=== PATIENT | female | born 1980 | race American Indian/Alaskan Native ===

== ENCOUNTER 2017-07-11 23:59 | Emergency (ER) | payer MEDICARE ==
[2017-07-12 02:20] LABS: Hematocrit 40.2 % (30.3-42.9); Hemoglobin 13.7 gm/dl (10.1-14.3); Mean Corpuscular HGB Conc 34 % (30-34); Mean Corpuscular Volume 75 fl (79-97); Platelet Count 288 K/mm3 (140-440); Red Blood Count 5.33 M/mm3 (3.65-5.03); Red Cell Distribution Width 17.6 % (13.2-15.2)
[2017-07-12 02:36] LABS: BUN/Creatinine Ratio 12; Blood Urea Nitrogen 7 mg/dL (7-17); Calcium 8.7 mg/dL (8.4-10.2); Hemolysis Index 2
[2017-07-12 02:41] LABS: Mean Corpuscular Hemoglobin 26 pg (28-32)
[2017-07-12 04:40] LABS: Band Neutrophils # (Manual) 0.6 K/mm3; Basophils % (Manual) 0 % (0.0-1.8); Eosinophils % (Manual) 0 % (0.0-4.3); Hypochromasia 1+; Total Cells Counted 100
[2017-07-12] MEDS ORDERED: MOTRIN PO ONE (08:20)
[2017-07-12] MEDS ORDERED: VEETIDS PO NR (08:20)
[2017-07-12] MEDS ORDERED: PERCOCET 5/325 PO PRN (08:20)
--- NOTE | 2017-07-12 08:25 | Emergency Department Report ---
ED General Adult HPI - General Chief complaint: Dental/Oral Stated complaint: TOOTHACHE,DIZZY Time Seen by Provider: 07/12/17 08:04 Source: patient Mode of arrival: Ambulatory Limitations: No Limitations - History of Present Illness Initial comments: This is a 37-year-old female who is unknown to this provider previously, has a past medical history of obesity who presents to the ER with complaint of left- sided nontraumatic facial pain, and dental pain over teeth #14, 15, 16. She endorses sensitivity to cold, hot. She has no stridor, or trismus, but she does have pain with chewing food. She denies tinnitus, she denies vertigo, she denies change in auditory acuity. She does complain of resolves dizziness, Patient describes the dizziness as a sensation of room spinning, only when she closed her eyes. She indicates that it lasted for a few seconds, and that she is not experiencing it now, and she has not been experiencing it for many hours. The patient denies other complaints. -: Gradual Location: face, mouth Radiation: non-radiation Quality: aching Consistency: constant Improves with: rest Worsens with: movement Associated Symptoms: headaches (left-sided frontal sinus headache). denies: confusion, chest pain, cough, diaphoresis, fever/chills, loss of appetite, malaise, nausea/vomiting, rash, seizure, shortness of breath, syncope, weakness - Related Data Home Medications Medication Instructions Recorded Confirmed Last Taken Teena-D 24 Hour Tablet 180 mg PO DAILY 01/28/15 08/09/15 02/20/15 Fergon 240 MG tab 1 tab PO DAILY 01/28/15 02/21/15 02/20/15 Fluticasone (Nf) 1 spray INNOSTRIL DAILY 01/28/15 08/09/15 02/20/15 Gabapentin 1 tab PO DAILY 01/28/15 08/09/15 02/20/15 Losartan/Hydrochlorothiazide 1 tab PO DAILY 01/28/15 08/09/15 02/20/15 [Losartan-Hctz 50-12.5 mg Tab] Vitamin C 500 mg PO DAILY 01/28/15 08/09/15 02/20/15 Previous Rx's Medication Instructions Recorded Last Taken Type Chlorhexidine Gluconate [Paroex] 473 ml MM BID #1 mouthwash 07/12/17 Unknown Rx Ibuprofen [Motrin] 600 mg PO Q8H PRN #30 tablet 07/12/17 Unknown Rx Ondansetron [Zofran Odt] 4 mg PO Q8HR PRN #20 tab.rapdis 07/12/17 Unknown Rx Penicillin V Potassium 500 mg PO QID #28 tablet 07/12/17 Unknown Rx oxyCODONE [Roxicodone] 5 mg PO Q6HR PRN #15 tablet 07/12/17 Unknown Rx Allergies Allergy/AdvReac Type Severity Reaction Status Date / Time No Known Allergies Allergy Verified 08/09/15 11:09 ED Review of Systems ROS: Stated complaint: TOOTHACHE,DIZZY Other details as noted in HPI Comment: All other systems reviewed and negative ENT: dental pain ED Past Medical Hx - Past Medical History Previous Medical History?: Yes Hx Hypertension: Yes Hx Congestive Heart Failure: No Hx Diabetes: Yes (takes Metformin) Hx GERD: Yes Hx Sickle Cell Disease: (SICKLE CELL TRAIT) Hx Arthritis: Yes Hx Asthma: No Hx COPD: No Hx HIV: No Additional medical history: PSH CSEC. PMH HTN. OBESE. OA. ANEMIA. RX. BP MEDS. VIT. FE - Surgical History Past Surgical History?: Yes Additional Surgical History: csection x 3 - Social History Smoking Status: Never Smoker - Medications Home Medications: Home Medications Medication Instructions Recorded Confirmed Last Taken Type Teena-D 24 Hour Tablet 180 mg PO DAILY 01/28/15 08/09/15 02/20/15 History Fergon 240 MG tab 1 tab PO DAILY 01/28/15 02/21/15 02/20/15 History Fluticasone (Nf) 1 spray INNOSTRIL DAILY 01/28/15 08/09/15 02/20/15 History Gabapentin 1 tab PO DAILY 01/28/15 08/09/15 02/20/15 History Losartan/Hydrochlorothiazide 1 tab PO DAILY 01/28/15 08/09/15 02/20/15 History [Losartan-Hctz 50-12.5 mg Tab] Vitamin C 500 mg PO DAILY 01/28/15 08/09/15 02/20/15 History Chlorhexidine Gluconate [Paroex] 473 ml MM BID #1 mouthwash 07/12/17 Unknown Rx Ibuprofen [Motrin] 600 mg PO Q8H PRN #30 tablet 07/12/17 Unknown Rx Ondansetron [Zofran Odt] 4 mg PO Q8HR PRN #20 tab.rapdis 07/12/17 Unknown Rx Penicillin V Potassium 500 mg PO QID #28 tablet 07/12/17 Unknown Rx oxyCODONE [Roxicodone] 5 mg PO Q6HR PRN #15 tablet 07/12/17 Unknown Rx ED Physical Exam - General Limitations: No Limitations General appearance: alert, in no apparent distress - Head Head exam: Present: atraumatic, normocephalic, other (left-sided maxillary sinus tenderness) - Eye Eye exam: Present: normal appearance, PERRL, EOMI, other (visual acuity intact to finger counting, color perception, reading at a close distance). Absent: nystagmus - ENT ENT exam: Present: mucous membranes moist, TM's normal bilaterally, normal external ear exam, other (there is no mastoid tenderness. There are no vesicles. There is no stridor or trismus. Dental caries and poor dentition noted universally, especially poor dentition over teeth #14, 15, 16. There is gingival tenderness. Small gingival/periapical abscesses noted.). Absent: normal orophraynx - Neck Neck exam: Present: normal inspection, full ROM. Absent: tenderness, meningismus - Respiratory Respiratory exam: Present: normal lung sounds bilaterally. Absent: respiratory distress - Cardiovascular Cardiovascular Exam: Present: regular rate, normal rhythm, normal heart sounds. Absent: bradycardia, tachycardia, irregular rhythm, systolic murmur, diastolic murmur, rubs, gallop - GI/Abdominal GI/Abdominal exam: Present: soft, normal bowel sounds. Absent: distended, tenderness, guarding, rebound, rigid, pulsatile mass, hernia - Extremities Exam Extremities exam: Present: normal inspection, full ROM, normal capillary refill , other (there is no palpable cord. There is a negative Homans sign.). Absent : pedal edema, joint swelling, calf tenderness - Back Exam Back exam: Present: normal inspection, full ROM. Absent: tenderness, CVA tenderness (R), paraspinal tenderness, vertebral tenderness - Neurological Exam Neurological exam: Present: alert, oriented X3, CN II-XII intact, normal gait ( there is no past pointing. There is normal thdq-ic-dxmh. There is negative pronator drift. There is normal gait.), other (Extraocular movements intact. Tongue midline. No facial droop. Facial sensation intact to light touch in the V1, V2, V3 distribution bilaterally. 5 and 5 strength in 4 extremities.. Sensation is intact to light touch in 4 extremities.). Absent: motor sensory deficit - Psychiatric Psychiatric exam: Present: normal affect, normal mood - Skin Skin exam: Present: warm, dry, intact, normal color. Absent: rash ED Course Vital Signs 07/12/17 07/12/17 07/12/17 00:39 00:57 05:39 Temperature 98.6 F 98.6 F 98.3 F Pulse Rate 102 H 98 H 83 Respiratory 20 20 20 Rate Blood Pressure 172/113 172/113 Blood Pressure 147/81 [Right] O2 Sat by Pulse 97 96 98 Oximetry 07/12/17 07/12/17 07/12/17 06:00 08:47 09:46 Temperature Pulse Rate Respiratory 20 18 18 Rate Blood Pressure 130/91 Blood Pressure [Right] O2 Sat by Pulse 98 Oximetry 07/12/17 09:50 Temperature 98.9 F Pulse Rate 101 H Respiratory 18 Rate Blood Pressure Blood Pressure 135/85 [Right] O2 Sat by Pulse 97 Oximetry ED Medical Decision Making - Lab Data Result diagrams: 07/12/17 01:16 07/12/17 01:16 Vital Signs 07/12/17 07/12/17 07/12/17 00:39 00:57 05:39 Temperature 98.6 F 98.6 F 98.3 F Pulse Rate 102 H 98 H 83 Respiratory 20 20 20 Rate Blood Pressure 172/113 172/113 Blood Pressure 147/81 [Right] O2 Sat by Pulse 97 96 98 Oximetry 07/12/17 06:00 Temperature Pulse Rate Respiratory 20 Rate Blood Pressure 130/91 Blood Pressure [Right] O2 Sat by Pulse 98 Oximetry Lab Results 07/12/17 07/12/17 07/12/17 Range/Units 01:16 01:16 01:16 WBC 15.2 H (4.5-11.0) K/mm3 RBC 5.33 H (3.65-5.03) M/mm3 Hgb 13.7 (10.1-14.3) gm/dl Hct 40.2 (30.3-42.9) % MCV 75 L (79-97) fl MCH 26 L (28-32) pg MCHC 34 (30-34) % RDW 17.6 H (13.2-15.2) % Plt Count 288 (140-440) K/mm3 Lymph # Inventory Coordinator Add Manual Diff Complete Total Counted 100 Seg Neuts % (Manual) 63.0 (40.0-70.0) % Band Neutrophils % 4.0 % Lymphocytes % (Manual) 30.0 (13.4-35.0) % Reactive Lymphs % (Man) 0 % Monocytes % (Manual) 3.0 (0.0-7.3) % Eosinophils % (Manual) 0 (0.0-4.3) % Basophils % (Manual) 0 (0.0-1.8) % Metamyelocytes % 0 % Myelocytes % 0 % Promyelocytes % 0 % Blast Cells % 0 % Nucleated RBC % Not Reportable Seg Neutrophils # Man 9.6 H (1.8-7.7) K/mm3 Band Neutrophils # 0.6 K/mm3 Lymphocytes # (Manual) 4.6 (1.2-5.4) K/mm3 Abs React Lymphs (Man) 0.0 K/mm3 Monocytes # (Manual) 0.5 (0.0-0.8) K/mm3 Eosinophils # (Manual) 0.0 (0.0-0.4) K/mm3 Basophils # (Manual) 0.0 (0.0-0.1) K/mm3 Metamyelocytes # 0.0 K/mm3 Myelocytes # 0.0 K/mm3 Promyelocytes # 0.0 K/mm3 Blast Cells # 0.0 K/mm3 WBC Morphology Not Reportable Hypersegmented Neuts Not Reportable Hyposegmented Neuts Not Reportable Hypogranular Neuts Not Reportable Smudge Cells Not Reportable Toxic Granulation Not Reportable Toxic Vacuolation Not Reportable Dohle Bodies Not Reportable Pelger-Huet Anomaly Not Reportable Felicita Rods Not Reportable Platelet Estimate Appears normal Clumped Platelets Not Reportable Plt Clumps, EDTA Not Reportable Large Platelets Not Reportable Giant Platelets Not Reportable Platelet Satelliting Not Reportable Plt Morphology Comment Not Reportable RBC Morphology Not Reportable Dimorphic RBCs Not Reportable Polychromasia Not Reportable Hypochromasia 1+ Poikilocytosis Not Reportable Anisocytosis Not Reportable Microcytosis Not Reportable Macrocytosis Not Reportable Spherocytes Not Reportable Pappenheimer Bodies Not Reportable Sickle Cells Not Reportable Target Cells Not Reportable Tear Drop Cells Not Reportable Ovalocytes Not Reportable Helmet Cells Not Reportable [place] Bodies Not Reportable Boulevard Rings Not Reportable [place] Cells Not Reportable Bite Cells Not Reportable Crenated Cell Not Reportable Elliptocytes Not Reportable Acanthocytes (Spur) Not Reportable Rouleaux Not Reportable Hemoglobin C Crystals Not Reportable Schistocytes Not Reportable Malaria parasites Not Reportable Beka Bodies Not Reportable Hem Pathologist Commnt No Sodium 140 (137-145) mmol/L Potassium 3.5 L (3.6-5.0) mmol/L Chloride 100.9 (98-107) mmol/L Carbon Dioxide 27 (22-30) mmol/L Anion Gap 16 mmol/L BUN 7 (7-17) mg/dL Creatinine 0.6 L (0.7-1.2) mg/dL Estimated GFR > 60 ml/min BUN/Creatinine Ratio 12 % Glucose 125 H (65-100) mg/dL Calcium 8.7 (8.4-10.2) mg/dL Troponin T < 0.010 (0.00-0.029) ng/mL HCG, Qual Negative (Negative) 07/12/17 07/12/17 Range/Units 04:37 07:04 WBC (4.5-11.0) K/mm3 RBC (3.65-5.03) M/mm3 Hgb (10.1-14.3) gm/dl Hct (30.3-42.9) % MCV (79-97) fl MCH (28-32) pg MCHC (30-34) % RDW (13.2-15.2) % Plt Count (140-440) K/mm3 Lymph # Add Manual Diff Total Counted Seg Neuts % (Manual) (40.0-70.0) % Band Neutrophils % % Lymphocytes % (Manual) (13.4-35.0) % Reactive Lymphs % (Man) % Monocytes % (Manual) (0.0-7.3) % Eosinophils % (Manual) (0.0-4.3) % Basophils % (Manual) (0.0-1.8) % Metamyelocytes % % Myelocytes % % Promyelocytes % % Blast Cells % % Nucleated RBC % Seg Neutrophils # Man (1.8-7.7) K/mm3 Band Neutrophils # K/mm3 Lymphocytes # (Manual) (1.2-5.4) K/mm3 Abs React Lymphs (Man) K/mm3 Monocytes # (Manual) (0.0-0.8) K/mm3 Eosinophils # (Manual) (0.0-0.4) K/mm3 Basophils # (Manual) (0.0-0.1) K/mm3 Metamyelocytes # K/mm3 Myelocytes # K/mm3 Promyelocytes # K/mm3 Blast Cells # K/mm3 WBC Morphology Hypersegmented Neuts Hyposegmented Neuts Hypogranular Neuts Smudge Cells Toxic Granulation Toxic Vacuolation Dohle Bodies Pelger-Huet Anomaly Felicita Rods Platelet Estimate Clumped Platelets Plt Clumps, EDTA Large Platelets Giant Platelets Platelet Satelliting Plt Morphology Comment RBC Morphology Dimorphic RBCs Polychromasia Hypochromasia Poikilocytosis Anisocytosis Microcytosis Macrocytosis Spherocytes Pappenheimer Bodies Sickle Cells Target Cells Tear Drop Cells Ovalocytes Helmet Cells [place] Bodies [place] Rings [place] Cells Bite Cells Crenated Cell Elliptocytes Acanthocytes (Spur) Rouleaux Hemoglobin C Crystals Schistocytes Malaria parasites Beka Bodies Hem Pathologist Commnt Sodium (137-145) mmol/L Potassium (3.6-5.0) mmol/L Chloride (98-107) mmol/L Carbon Dioxide (22-30) mmol/L Anion Gap mmol/L BUN (7-17) mg/dL Creatinine (0.7-1.2) mg/dL Estimated GFR ml/min BUN/Creatinine Ratio % Glucose (65-100) mg/dL Calcium (8.4-10.2) mg/dL Troponin T < 0.010 < 0.010 (0.00-0.029) ng/mL HCG, Qual (Negative) - EKG Data -: EKG Interpreted by Me EKG shows normal: sinus rhythm, axis, intervals, QRS complexes, ST-T waves - EKG Data When compared to previous EKG there are: previous EKG unavailable - Medical Decision Making Differential diagnosis, including not limited to: Dentalgia, resolved peripheral vertigo, maxillary sinus pain is referred pain from dentalgia Assessment and plan: 37-year-old female with a primary complaint of left-sided facial pain, dental pain, sensitivity to cold, no trismus, stridor, malocclusion , teeth #14, 15, 16 appear to be infected, cranial nerve exam is unremarkable, has a normal neurologic examination, walks with a steady gait, and is afebrile with reassuring vital signs. EKG is unremarkable, troponins were sent prior to my evaluation, patient does not endorse chest pain, she is a young age, low risk for major adverse cardiac event, low risk by EUNICE score, low risk by heart score Patient is given a printout of low-cost dental clinics, she will be started on pain medication, antibiotics, chlorhexidine, and referred to outpatient dental. Critical care attestation.: If time is entered above; I have spent that time in minutes in the direct care of this critically ill patient, excluding procedure time. ED Disposition Clinical Impression: Dentalgia Disposition: TO HOME OR SELFCARE Is pt being admited?: No Does the pt Need Aspirin: No Condition: Stable Instructions: Dental Caries (ED) Additional Instructions: Take the pain medication, nausea medication, antibiotics as directed. Follow up with a dentist as soon as possible. Return to the ER right away with new pain, worsened pain, migration of pain, fevers, chills, lethargy, irritability, projectile vomiting, change in mental status, confusion, inability to tolerate liquid feeds. Prescriptions: Chlorhexidine Gluconate [Paroex] 473 ml MM BID #1 mouthwash Ibuprofen [Motrin] 600 mg PO Q8H PRN #30 tablet PRN Reason: Pain Ondansetron [Zofran Odt] 4 mg PO Q8HR PRN #20 tab.rapdis PRN Reason: Nausea oxyCODONE [Roxicodone] 5 mg PO Q6HR PRN #15 tablet PRN Reason: Pain Penicillin V Potassium 500 mg PO QID #28 tablet Referrals: RACHEL ZABALA [Primary Care Provider] - 3-5 Days [facility] [Outside] - 3-5 Days
[2017-07-12 09:51] VITALS: BP 135/85
== END 2017-07-12 09:50 | disposition home or self-care (01) ==
LOC: ED 23:59
DX: K08.89 Other specified disorders of teeth and supporting structures (principal); I10 Essential (primary) hypertension; E11.9 Type 2 diabetes mellitus without complications; D57.00 Hb-SS disease with crisis, unspecified; M19.90 Unspecified osteoarthritis, unspecified site; D64.9 Anemia, unspecified; E66.9 Obesity, unspecified
CPT/HCPCS: 36415; 80048; 84484; 84703; 85007; 85025; 93005; 93010

== ENCOUNTER 2018-11-27 22:30 | Emergency (ER) | payer MEDICARE ==
[2018-11-27 22:57] VITALS: BP 96/62
--- NOTE | 2018-11-28 00:25 | XRay Report ---
RIGHT ANKLE, 3 VIEWS 11/27/2018 INDICATION / CLINICAL INFORMATION: MAIN: ankle pain. COMPARISON: None available. FINDINGS: There are degenerative changes of the talocalcaneal joint. A well-corticated ossific density is seen at the medial malleolus that could represent an ununited ol d fracture or accessory ossicle. No acute fractures are identified. Signer Name: Paras Solitario MD Signed: 11/28/2018 12:21 AM Workstation Name: [email or web address]
--- NOTE | 2018-11-28 02:05 | Emergency Department Report ---
ED Extremity Problem HPI - General Chief complaint: Extremity Injury, Lower Stated complaint: RT ANKLE PAIN Time Seen by Provider: 11/28/18 01:56 Source: patient Mode of arrival: Ambulatory Limitations: No Limitations - History of Present Illness Initial comments: 38-year-old -[place] female resents to the emergency room for right ankle pain. Patient reports that she fell today about 1530 and that she was getting up she had twisted her right ankle at that time she heard something pop. Patient reports that the pain is worse with weight patient has not taken anything for pain. Patient reports that she is followed by [facility] and has not seen him in 3 years for her osteoarthritis. She reports she's had multiple falls in the last month secondary to having osteoarthritis of both knees. Patient reports that she is followed by Dr. Baltazar. Complaint: extremity pain, joint paint -: This afternoon Time: 15:30 Location: right, lower extremity (ankle) History of Same: No -: Yes arthralgia Severity scale (0 -10): 9 Quality: aching Consistency: constant Improves with: rest Worsens with: weight bearing, walking - Related Data Home Medications Medication Instructions Recorded Confirmed Last Taken Teena-D 24 Hour Tablet 180 mg PO DAILY 01/28/15 08/09/15 02/20/15 Fergon 240 MG tab 1 tab PO DAILY 01/28/15 02/21/15 02/20/15 Fluticasone (Nf) 1 spray INNOSTRIL DAILY 01/28/15 08/09/15 02/20/15 Gabapentin 1 tab PO DAILY 01/28/15 08/09/15 02/20/15 Losartan/Hydrochlorothiazide 1 tab PO DAILY 01/28/15 08/09/15 02/20/15 [Losartan-Hctz 50-12.5 mg Tab] Vitamin C 500 mg PO DAILY 01/28/15 08/09/15 02/20/15 Previous Rx's Medication Instructions Recorded Last Taken Type Chlorhexidine Gluconate [Paroex] 473 ml MM BID #1 mouthwash 07/12/17 Unknown Rx Ibuprofen [Motrin] 600 mg PO Q8H PRN #30 tablet 07/12/17 Unknown Rx Ondansetron [Zofran Odt] 4 mg PO Q8HR PRN #20 tab.rapdis 07/12/17 Unknown Rx Penicillin V Potassium 500 mg PO QID #28 tablet 07/12/17 Unknown Rx oxyCODONE [Roxicodone] 5 mg PO Q6HR PRN #15 tablet 07/12/17 Unknown Rx Meloxicam [Mobic] 15 mg PO QDAY PRN #14 tablet 11/28/18 Unknown Rx Allergies Allergy/AdvReac Type Severity Reaction Status Date / Time No Known Allergies Allergy Verified 08/09/15 11:09 ED Review of Systems ROS: Stated complaint: RT ANKLE PAIN Other details as noted in HPI Comment: All other systems reviewed and negative ED Past Medical Hx - Past Medical History Hx Hypertension: Yes Hx Congestive Heart Failure: No Hx Diabetes: Yes (takes Metformin) Hx GERD: Yes Hx Sickle Cell Disease: (SICKLE CELL TRAIT) Hx Arthritis: Yes Hx Asthma: No Hx COPD: No Hx HIV: No Additional medical history: PSH CSEC. PMH HTN. OBESE. OA. ANEMIA. RX. BP MEDS. VIT. FE - Surgical History Additional Surgical History: csection x 3 - Social History Smoking Status: Never Smoker - Medications Home Medications: Home Medications Medication Instructions Recorded Confirmed Last Taken Type Teena-D 24 Hour Tablet 180 mg PO DAILY 01/28/15 08/09/15 02/20/15 History Fergon 240 MG tab 1 tab PO DAILY 01/28/15 02/21/15 02/20/15 History Fluticasone (Nf) 1 spray INNOSTRIL DAILY 01/28/15 08/09/15 02/20/15 History Gabapentin 1 tab PO DAILY 01/28/15 08/09/15 02/20/15 History Losartan/Hydrochlorothiazide 1 tab PO DAILY 01/28/15 08/09/15 02/20/15 History [Losartan-Hctz 50-12.5 mg Tab] Vitamin C 500 mg PO DAILY 01/28/15 08/09/15 02/20/15 History Chlorhexidine Gluconate [Paroex] 473 ml MM BID #1 mouthwash 07/12/17 Unknown Rx Ibuprofen [Motrin] 600 mg PO Q8H PRN #30 tablet 07/12/17 Unknown Rx Ondansetron [Zofran Odt] 4 mg PO Q8HR PRN #20 tab.rapdis 07/12/17 Unknown Rx Penicillin V Potassium 500 mg PO QID #28 tablet 07/12/17 Unknown Rx oxyCODONE [Roxicodone] 5 mg PO Q6HR PRN #15 tablet 07/12/17 Unknown Rx Meloxicam [Mobic] 15 mg PO QDAY PRN #14 tablet 11/28/18 Unknown Rx ED Physical Exam - General Limitations: No Limitations General appearance: alert, in no apparent distress - Head Head exam: Present: atraumatic, normocephalic - ENT ENT exam: Present: mucous membranes moist - Expanded Lower Extremity Exam Right Hip exam: Present: full ROM Upper Leg exam: Present: normal inspection, tenderness Knee exam: Present: normal inspection, full ROM Ankle exam: Present: full ROM ED Course Vital Signs 11/27/18 22:55 Temperature 98.3 F Pulse Rate 74 Respiratory 17 Rate Blood Pressure 96/62 O2 Sat by Pulse 100 Oximetry ED Medical Decision Making - Radiology Data Radiology results: report reviewed Patient: XAVI ASHRAF MR#: [id number] : 1980 Acct:[id number] Age/Sex: 38 / F ADM Date: 11/27/18 Loc: ED Attending Dr: Ordering Physician: GISEL MOTLEY MD Date of Service: 11/27/18 Procedure(s): XR ankle 3+V RT Accession Number(s): [id number] cc: GISEL MOTLEY MD Fluoro Time In Minutes: RIGHT ANKLE, 3 VIEWS 11/27/2018 INDICATION / CLINICAL INFORMATION: MAIN: ankle pain. COMPARISON: None available. FINDINGS: There are degenerative changes of the talocalcaneal joint. A well-corticated ossific density is seen at the medial malleolus that could represent an ununited old fracture or accessory ossicle. No acute fractures are identified. Signer Name: Paras Solitario MD Signed: 11/28/2018 12:21 AM Workstation Name: [id number] Transcribed By: GA Dictated By: Paras Solitario MD Electronically Authenticated By: Paras Solitario MD Signed Date/Time: 11/28/1820 DD/ 001 TD/TT: - Medical Decision Making 38-year-old -[place] female resents to the emergency room for right ankle pain. Patient reports that she fell today about 1530 and that she was ge tting up she had twisted her right ankle at that time she heard something pop. Patient reports that the pain is worse with weight patient has not taken anything for pain. Patient reports that she is followed by [facility] and has not seen him in 3 years for her osteoarthritis. She reports she's had multiple falls in the last month secondary to having osteoarthritis of both knees. Patient reports that she is followed by Dr. Baltazar. X-ray of right ankle shows no acute abnormalities. Patient be given ibuprofen 800 mg 2 her [facility] visit. Patient be discharged home on Mobic as well as placed in a right ankle stirrup brace and crutches and to follow-up with her orthopedic provider. Critical care attestation.: If time is entered above; I have spent that time in minutes in the direct care of this critically ill patient, excluding procedure time. ED Disposition Clinical Impression: Sprain of ankle, right Qualifiers: Encounter type: initial encounter Involved ligament of ankle: anterior talofibular ligament Qualified Code(s): S93.491A - Sprain of other ligament of right ankle, initial encounter Disposition: DC- TO HOME OR SELFCARE Is pt being admited?: No Does the pt Need Aspirin: No Condition: Stable Instructions: Ankle Sprain (ED), Ankle Stirrup Splint (ED) Prescriptions: Meloxicam [Mobic] 15 mg PO QDAY PRN #14 tablet PRN Reason: Pain , Severe (7-10) Referrals: PARAS BALTAZAR MD [Staff Physician] - 3-5 Days Forms: Work/School Release Form(ED), Accompanied Note
[2018-11-28] MEDS ORDERED: IBUPROFEN PO ONE (02:17)
== END 2018-11-28 03:00 | disposition home or self-care (01) ==
LOC: ED 22:30
DX: S93.491A Sprain of other ligament of right ankle, initial encounter (principal); I10 Essential (primary) hypertension; E11.9 Type 2 diabetes mellitus without complications; K21.9 Gastro-esophageal reflux disease without esophagitis; M19.90 Unspecified osteoarthritis, unspecified site; D57.3 Sickle-cell trait; X58.XXXA Exposure to other specified factors, initial encounter; Y93.89 Activity, other specified; Y92.89 Other specified places as the place of occurrence of the external cause; Y99.8 Other external cause status
CPT/HCPCS: 29540